=== PATIENT | female | born 1975 | race Caucasian/White ===

== ENCOUNTER → 2016-12-20 13:41 | Outpatient (CLI) | payer BC | END | disposition home or self-care (01) | LOC: D.RAD 13:41 | DX: M79.671 Pain in right foot (principal) ==

== ENCOUNTER → 2017-01-06 14:35 | Outpatient (CLI) | payer BC | END | disposition home or self-care (01) | LOC: D.MRI 14:35 | DX: M54.5 Low back pain (principal); M54.6 Pain in thoracic spine ==

== ENCOUNTER 2020-04-24 08:00 | Outpatient (CLI) | payer BC | END 2020-04-24 15:28 | disposition home or self-care (01) | LOC: D.MAMMO 08:00 | PROVIDERS: ATTEND Internal Medicine | DX: Z12.31 Encounter for screening mammogram for malignant neoplasm of breast (principal) ==